=== PATIENT | female | born 1960 | race Two or more races ===

== ENCOUNTER 2021-07-12 17:26 | Emergency (ER) | payer OTHER ==
[~2021-07-12] VITALS: Ht 172.7 cm; Wt 113.4 kg
[2021-07-12] MEDS ORDERED: COZAAR100 MG PO (17:50)
[2021-07-12] MEDS ORDERED: VASOTEC10 MG NGT (17:50)
[2021-07-12] MEDS ORDERED: CARVEDILOL12.5 MG (17:50)
[2021-07-12] MEDS ORDERED: SYNTHROID175 MCG PO (17:50)
== END 2021-07-12 20:58 | disposition home or self-care (01) ==
LOC: ER 17:26
DX: J30.9 Allergic rhinitis, unspecified (principal)

== ENCOUNTER 2022-03-04 13:08 | Emergency (ER) | payer OTHER ==
[~2022-03-04] VITALS: Ht 172.7 cm; Wt 115.7 kg
[~2022-03-04 13:08] MED LIST: CARVEDILOL12.5 MG; COZAAR100 MG PO; SYNTHROID175 MCG PO; VASOTEC10 MG NGT
[2022-03-04] MEDS ORDERED: BUPROPION XL300 MG PO (13:29)
[2022-03-04] MEDS ORDERED: ZOLOFT20 MG/1 ML PO (13:29)
== END 2022-03-04 19:54 | disposition home or self-care (01) ==
LOC: ER 13:08
DX: U07.1 COVID-19 (principal)

== ENCOUNTER 2024-05-02 12:39 | Outpatient (CLI) | payer OTHER ==
[~2024-05-02 12:39] MED LIST changes: +BUPROPION XL300 MG PO; +ZOLOFT20 MG/1 ML PO
== END 2024-05-02 12:44 | disposition home or self-care (01) ==
LOC: NUCLEAR 12:39
PROVIDERS: ATTEND Obstetrics & Gynecology
DX: M81.0 Age-related osteoporosis without current pathological fracture (principal)

== ENCOUNTER 2024-05-02 13:34 | Outpatient (CLI) | payer OTHER | END 2024-05-02 13:41 | disposition home or self-care (01) | LOC: MAMO-SONO 13:34 | PROVIDERS: ATTEND Obstetrics & Gynecology | DX: N60.11 Diffuse cystic mastopathy of right breast (principal); N60.12 Diffuse cystic mastopathy of left breast ==

== ENCOUNTER 2024-10-05 07:11 | Outpatient (CLI) | payer OTHER | END 2024-10-05 07:12 | disposition home or self-care (01) | LOC: NUCLEAR 07:11 | DX: E21.0 Primary hyperparathyroidism (principal) ==

== ENCOUNTER 2025-07-30 12:37 | Outpatient (CLI) | payer OTHER | END 2025-07-30 12:39 | disposition home or self-care (01) | LOC: SONOGRAMA 12:37 | PROVIDERS: ATTEND Pathology Anatomic Pathology | DX: R59.0 Localized enlarged lymph nodes (principal) ==